=== PATIENT | female | born 1980 | race Caucasian/White ===

== ENCOUNTER → 2019-01-14 | Outpatient (CLI) | payer BC | LOC: COL.RAD 11:32 → EDBD 11:32 | DX: T74.91XA Unspecified adult maltreatment, confirmed, initial encounter (principal); S09.92XA Unspecified injury of nose, initial encounter ==

== ENCOUNTER → 2019-10-06 | Outpatient (CLI) | payer BC | LOC: COL.RAD 07:59 | DX: K21.9 Gastro-esophageal reflux disease without esophagitis (principal) ==

== ENCOUNTER 2019-10-31 10:29 | Day surgery (SDC) | payer BC ==
[~2019-10-31] VITALS: Ht 163.8 cm; Wt 102.0 kg
[2019-10-31 10:56] VITALS: BP 128/82; PULSE 85; TEMP 98.1
[2019-10-31] MEDS ORDERED: PROTONIX 40MG T40 MG PO (11:02)
[2019-10-31] MEDS ORDERED: AMITRIPTYLINE H25 M1 PO (11:03)
[2019-10-31] MEDS ORDERED: CYMBALTA 60MG60 MG PO (11:04)
[2019-10-31] MEDS ORDERED: MOTRIN 800800 MG/TAB PO (11:04)
[2019-10-31 12:10] VITALS: BP 117/74; PULSE 77; TEMP 98.5
--- NOTE | 2019-10-31 12:10 | NUR ---
Patient arrives back to [facility] drowsy, denies pain or nausea. Patient ambulates with stand by assist from cart to chair with stand by assist and without any complications. Patient monitor applied, vitals stable. Patient given water at this time.
--- NOTE | 2019-10-31 12:20 | NUR ---
Dr Doyle into see patient and patient's spouse to go procedure results.
[2019-10-31 12:25] VITALS: BP 120/71; PULSE 72
--- NOTE | 2019-10-31 12:30 | NUR ---
Patient given crackers at this time. Vitals stable.
[2019-10-31 12:40] VITALS: BP 114/85; PULSE 68
--- NOTE | 2019-10-31 12:50 | NUR ---
Dismissal instructions gone over with patient and patient's spouse. Both verbalize understanding and all questions answered.
--- NOTE | 2019-10-31 12:55 | NUR ---
Patient discharged to private vehicle at patient enterance via wheelchair without any complications. Patient's spouse is driving vehicle. Patient and spouse leave thanking staff for services.
== END 2019-10-31 12:55 | disposition home or self-care (01) ==
LOC: SDCO 10:29
DX: K21.0 Gastro-esophageal reflux disease with esophagitis (principal); K25.9 Gastric ulcer, unspecified as acute or chronic, without hemorrhage or perforation; K44.9 Diaphragmatic hernia without obstruction or gangrene; R19.7 Diarrhea, unspecified; R14.0 Abdominal distension (gaseous); K62.89 Other specified diseases of anus and rectum; Z88.1 Allergy status to other antibiotic agents; Z88.8 Allergy status to other drugs, medicaments and biological substances; Z79.899 Other long term (current) drug therapy
CPT/HCPCS: J2250; J2405; J3010; J7030